=== PATIENT | male | born 1975 | race Caucasian/White ===

== ENCOUNTER → 2020-02-04 | Outpatient (CLI) | payer SELFPAY ==
[~2020-02-04] MED LIST: ANTIVERT 25MG25 MG PO; CLARITIN 1010 MG/TAB PO; NO HOME MEDICATIONS; NORCO 325 MG-51 TAB PO
== END ==
LOC: ZCOL.LAB 14:44
DX: Z03.818 Encounter for observation for suspected exposure to other biological agents ruled out (principal)

== ENCOUNTER 2024-05-12 07:50 | Day surgery (SDC) | payer OTHER ==
[~2024-05-12] VITALS: Ht 175.3 cm; Wt 150.0 kg
[~2024-05-12 07:50] MED LIST changes: +LR 1,000 ML IV SCH; +Ondansetron 4 MG/2 ML VIAL IV PRN
[2024-05-12] MEDS ORDERED: CARAFATE 1GM1 G PO (08:18)
[2024-05-12] MEDS ORDERED: ASPIRIN 81M81 MG/TA2 PO (08:19)
[2024-05-12] MEDS ORDERED: METAMUCIL0.52 G1 (08:19)
[2024-05-12] MEDS ORDERED: PROTONIX 40MG T40 MG PO (08:21)
[2024-05-12] MEDS ORDERED: PROBIOTIC BLEN1 EACH PO (08:21)
[2024-05-12] MEDS ORDERED: Lidocaine PF 2% (20 MG/ML) 5 ML VIAL ONE (08:37)
[2024-05-12 08:58] VITALS: BP 130/90; PULSE 76; TEMP 97.7
[2024-05-12 10:35] VITALS: BP 129/82; PULSE 76
[2024-05-12 10:50] VITALS: BP 123/91; PULSE 80
[2024-05-12 11:05] VITALS: BP 115/90; PULSE 66
--- NOTE | 2024-05-12 15:42 | NUR ---
1035 PATIENT RETURNS TO [facility] VIA CART. PT AWAKE AND ALERT. RESPIRATIONS UNLABORED. AMBULATED TO RECLINER CHAIR WITH 2:1 SBA. PT DENIES NAUSEA OR ABDOMINAL PAIN. HOOKED UP TO MONITOR AND VS OBTAINED. CALL LIGHT AT SIDE AND PRESENT. 1040 PATIENT TOLERATING COFFEE WITHOUT NAUSEA OR DIFFICULTY SWALLOWING. 1050 IN ROOM SPEAKING WITH PATIENT. 1100 D/C INSTRUCTIONS REVIEWED WITH PATIENT. PT VERBALIZED UNDERSTANDING AND A COPY OF INSTRUCTIONS PROVIDED IN D/C FOLDER. 1105 PATIENT DRESSES SELF. 1115 PATIENT DISCHARGED FROM UNIT VIA W/C TO A PERSONAL VEHICLE. PT LEFT HOSPITAL IN STABLE CONDITION.
== END 2024-05-12 11:15 | disposition home or self-care (01) ==
LOC: SDCO 07:50
DX: K29.50 Unspecified chronic gastritis without bleeding (principal); E66.01 Morbid (severe) obesity due to excess calories; Z68.42 Body mass index [BMI] 45.0-49.9, adult
CPT/HCPCS: J2704; J7120